=== PATIENT | male | born 1975 | race Caucasian/White ===

== ENCOUNTER → 2021-06-25 | Outpatient (REF) | payer MEDICAID ==
--- NOTE | 2021-06-25 14:23 | REP ---
INDICATION: BACK PAIN. COMPARISON: None TECHNIQUE: Three views FINDINGS: The disc spaces are symmetric and well maintained. Vertebral body height and alignment is within normal limits. IMPRESSION: Within normal limits <Electronically signed by Robb Hernández > 06/25/21 [id number]
== END ==
LOC: M PLAIMG 13:30 → EDSTATUS 06-28 07:28
PROVIDERS: ATTEND Internal Medicine
DX: M54.9 Dorsalgia, unspecified (principal)

== ENCOUNTER → 2022-04-02 | Outpatient (REF) | LOC: M PLAIMG 12:01 | PROVIDERS: ATTEND Internal Medicine | DX: M54.2 Cervicalgia (principal); M43.22 Fusion of spine, cervical region ==

== ENCOUNTER → 2024-10-26 | Outpatient (REF) | LOC: M PLAIMG 11:44 | PROVIDERS: ATTEND Internal Medicine | DX: M54.9 Dorsalgia, unspecified (principal); M47.812 Spondylosis without myelopathy or radiculopathy, cervical region; M47.816 Spondylosis without myelopathy or radiculopathy, lumbar region ==